=== PATIENT | male | born 1965 | race Caucasian/White ===

== ENCOUNTER 2018-09-03 21:58 | Emergency (ER) | payer OTHER ==
[~2018-09-03] VITALS: Ht 175.3 cm; Wt 93.0 kg
[2018-09-03 22:08] VITALS: BP 158/89
--- NOTE | 2018-09-03 22:12 | NUR ---
ER Nurse Note: Pt BIBA [address] ETOH[address] Pt stated his last drink was a few hours, stated he drank the whole "large" bottle of vodka. Pt is aggiated, mumbling and shaking the bed rails. Pt is unkept and has dirt on clothes. Security at bedside; pt is yelling and using racial words to staff. ERMD at pt side; will continue to [facility].
--- NOTE | 2018-09-03 22:23 | NUR ---
ER Nurse Note: Report given to DINO Irizarry. Pt VSS. Security at pt side.
--- NOTE | 2018-09-03 22:24 | NUR ---
ED Nurse Note: Received report from Netta/DINO. Pt is C/O ETOH. Pt is A/o x 4. VSS. willl continue to monitor.
--- NOTE | 2018-09-04 00:10 | NUR ---
ED Nurse Note: Pt asleep when visited, VSS, provide drinks.
--- NOTE | 2018-09-04 02:07 | Emergency Room Report ---
History of Present Illness General Chief Complaint: Alcohol Intoxication Source: Patient Present Illness HPI Patient presents reporting that he drank too much alcohol and he needs a place to sleep patient also initially asking for something to calm his nerves However after Allowing him to rest on a bed patient fell asleep without requiring any medication denies any headache denies any chest pain patient was initially verbally abusive to staff and myself Using the 'N' word and cursing at the staff Allergies: Coded Allergies: No Known Allergies (Unverified , 09/03/18) Patient History Past Medical History: see triage record Pertinent Family History: none Reviewed Nursing Documentation: PMH: Agreed; PSxH: Agreed Nursing Documentation-PMH Past Medical History: No Stated History Review of Systems All Other Systems: negative except mentioned in HPI Physical Exam Vital Signs Date Time Temp Pulse Resp B/P (MAP) Pulse Ox O2 Delivery O2 Flow Rate FiO2 09/03/18 21:55 98.2 82 18 158/89 98 09/03/18 22:08 Room Air Sp02 EP Interpretation: reviewed, normal General Appearance: other - Appears mildly disheveled Head: normocephalic, atraumatic Eyes: bilateral eye PERRL, bilateral eye EOMI ENT: hearing grossly normal, normal pharynx Neck: supple Respiratory: lungs clear, no retraction, no accessory muscle use Cardiovascular #1: regular rate, rhythm Gastrointestinal: non tender, soft Musculoskeletal: normal inspection Neurologic: alert, oriented x3, responsive Skin: normal color, no rash Lymphatic: no adenopathy Medical Decision Making Homeless Attestation I, The treating physician Dr. Coffman, have assessed and agrees that patient is medically stable for discharge to an outpatient disposition. Diagnostic Impression: Primary Impression: Alcohol abuse ER Course Upon initial arrival the patient is somewhat disruptive yelling and cursing at the staff patient also reports that he has been drinking and wants a place to sleep Patient is neurologically intact speaking appropriately There is no obvious sign of central process Patient was allowed to rest remained hemodynamically stable Patient has been reevaluated and is medically stable for discharge Patient is homeless and the homeless protocol has been initiated otherwise medically clear for continued close outpatient follow-up Last Vital Signs Date Time Temp Pulse Resp B/P (MAP) Pulse Ox O2 Delivery O2 Flow Rate FiO2 09/03/18 22:08 98.2 80 18 158/89 98 09/03/18 22:08 Room Air Status: improved Disposition: HOME, SELF-CARE Condition: Improved Referrals: NON PHYSICIAN (PCP) Additional Instructions: Patient is provided with the discharge instructions notified to follow up with primary doctor in the next 2-3 days otherwise return to the er with any worsening symptoms. Please note that this report is being documented using [employer] technology. This can lead to erroneous entry secondary to incorrect interpretation by the dictating instrument. Jonnathan Coffman DO Sep 04, 2018 02:07
[2018-09-04 04:11] VITALS: BP 152/83
[2018-09-04 05:50] VITALS: BP 147/81
--- NOTE | 2018-09-04 05:50 | NUR ---
Homeless Discharge: Patient is being discharged from medical care. Awake, alert and oriented x4. After care instructions were given. Patient verbalized understanding of After care instructions; at this time patient does not request medications, equipment or placement. Patient refused to sign patient consent in the medical record for patient destination upon discharge. All medical devices ID band were removed. Patient ambulated out with all personal belongings with steady gait.
== END 2018-09-04 05:50 | disposition home or self-care (01) ==
LOC: EDBD 21:58 → EMR 22:14
DX: F10.10 Alcohol abuse, uncomplicated (principal)
CPT/HCPCS: 99283

== ENCOUNTER 2018-09-04 10:53 | Emergency (ER) | payer OTHER ==
[~2018-09-04] VITALS: Ht 177.8 cm; Wt 93.0 kg
[2018-09-04 11:19] VITALS: BP 107/64
--- NOTE | 2018-09-04 11:20 | NUR ---
ED Nurse Note:pt. was BIBA from the street with ETOH, empty beer bottles next to pt. were reported by EMT, pt. is sleeping no signs of distress noted, VSS
[2018-09-04] MEDS ORDERED: Thiamine HCl 100mg/ml 2 ml Inj IM STA (12:49)
--- NOTE | 2018-09-04 12:49 | Emergency Room Report ---
History of Present Illness General Chief Complaint: Alcohol Intoxication Source: Patient (Terell Xie MD) Present Illness HPI Patient was brought in by EMS from the ED [facility] on [address]. 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 The patient was seen here yesterday and evaluated. He was discharged from the emergency department. The patient states he drinks every day. He's depressed over losing her relationship and family. His family is in [place]. He denies being suicidal. He denies vomiting, coffee grounds, melena. He denies seizures. He last ate yesterday. Apparently he was abusive to staff before leaving during his prior visit. (Terell Xie MD) Allergies: Coded Allergies: No Known Allergies (Unverified , 09/03/18) Patient History Past Medical History: see triage record Social History: Reports: smoking, alcohol use Social History Narrative living on the streets Reviewed Nursing Documentation: PMH: Agreed; PSxH: Agreed (Terell Xie MD) Nursing Documentation-PMH Hx Hypertension: Yes Hx Diabetes: Yes (Terell Xie MD) Review of Systems All Other Systems: negative except mentioned in HPI (Terell Xie MD) Physical Exam Vital Signs Date Time Temp Pulse Resp B/P (MAP) Pulse Ox O2 Delivery O2 Flow Rate FiO2 09/04/18 10:45 97.7 85 15 107/64 98 Room Air Sp02 EP Interpretation: reviewed, normal General Appearance: no apparent distress, non-toxic, other - Alcohol on his breath Head: normocephalic, atraumatic Eyes: bilateral eye PERRL, bilateral eye Scleral Injection ENT: moist mucus membranes Neck: full range of motion, supple, no bony tend Respiratory: chest non-tender, lungs clear, normal breath sounds Cardiovascular #1: regular rate, rhythm Cardiovascular #2: 2+ radial (R) Gastrointestinal: soft, other - Umbilical hernia, overweight Genitourinary: no CVA tenderness, no vertebral tenderness Musculoskeletal: normal range of motion, other - Disheveled Neurologic: motor strength/tone normal, DTRs symmetric, sensory intact, other - Ataxic, oriented - X2 Psychiatric: no suicidal/homicidal ideation, other - Lethargic of Skin: normal color, other - History of (Terell Xie MD) Medical Decision Making Homeless Attestation I, The treating physician Dr. Spears, has assessed and agrees that patient is medically stable for discharge to an outpatient disposition. (King Spears MD) Diagnostic Impression: Primary Impression: Acute alcoholic intoxication Qualified Codes: F10.929 - Alcohol use, unspecified with intoxication, unspecified ER Course Patient presents with acute in alcohol ingestion denies suicidal ideation. Patient denies any other medical complaints at this time.The patient will be given a multivitamin. Attempts will be made to see if he can get up to the [facility] for detox. Vital signs are stable and no laboratory tests or imaging are indicated at this time. Attempts to transfer the patient were unsuccessful. Patient given multivitamin and an IM dose of thiamine. The patient is sleeping and easily roused and in no distress. Patient signed out to Dr. Spears (Terell Xie MD) ER Course Hospital Course 53-year-old male presents to ED status post EtOH intoxication. Patient initially seen and evaluated by Dr. Xie; please see his note for full history and physical Clinical course Patient allowed to rest. Vital stable. No signs of distress. Now clinically sober. Patient is safe for discharge. Patient agreed to housing/alf referrals. Asking to be discharged Declining detox services Diagnosis - ETOH intoxication stable and discharged to home. Followup with PMD. Return to ED if symptoms recur or worsen (King Spears MD) Status: improved (Terell Xie MD) Status: improved (King Spears MD) Disposition: HOME, SELF-CARE Condition: Stable Referrals: NON PHYSICIAN (PCP) Terell Xie MD Sep 04, 2018 12:49 King Spears MD Sep 04, 2018 18:30
--- NOTE | 2018-09-04 13:29 | NUR ---
ED Nurse Note:pt. still sleeping no signs of distress noted
[2018-09-04 17:00] VITALS: BP 109/62
[2018-09-04 17:19] VITALS: BP 109/62
--- NOTE | 2018-09-04 17:25 | NUR ---
ED Nurse Note:pt. was cleared for d/c by ER , he signed d/c instructions , homeless forms filled in, he is A/Ox4 and ambulated out with steady gait
== END 2018-09-04 17:26 | disposition home or self-care (01) ==
LOC: EDBD 10:53 → EMR 11:19
DX: F10.120 Alcohol abuse with intoxication, uncomplicated (principal); I10 Essential (primary) hypertension; E11.9 Type 2 diabetes mellitus without complications
CPT/HCPCS: 96372; 99283